=== PATIENT | female | born 1965 | race Caucasian/White ===

== ENCOUNTER → 2017-08-20 | Outpatient (CLI) | payer OTHER ==
--- NOTE | 2017-08-21 15:29 | MAMMOGRAPHY REPORT ---
BILATERAL DIGITAL SCREENING MAMMOGRAM TOMOSYNTHESIS WITH CAD: 08/20/2017 CLINICAL HISTORY: Routine screening. Patient has no complaints. TECHNIQUE: Breast tomosynthesis in addition to standard 2D mammography was performed. Current study was also evaluated with a Computer Aided Detection (CAD) system. COMPARISON: Comparison is made to exams dated: 04/11/2015 mammogram, 01/25/2011 mammogram, 06/24/2009 mammogram - [facility], 04/28/2008, 07/03/2005 mammogram - [facility], and 05/14/2008. BREAST COMPOSITION: The tissue of both breasts is heterogeneously dense, which may obscure small mas ses. FINDINGS: There are possible grouped amorphous microcalcifications in the upper outer middle one thi rd of the left breast, for which additional spot magnification views are recommended. No other suspicious mass, architectural distortion or cluster of microcalcifications is seen bilatera lly. IMPRESSION: ACR BI-RADS CATEGORY 0: INCOMPLETE EVALUATION: NEED ADDITIONAL IMAGING EVALUATION The possible grouping of microcalcifications in the left upper outer breast needs additional evaluati on. The patient will be called to schedule an appointment. Approximately 10% of breast cancers are not detected with mammography. A negative mammographic report should not delay biopsy if a clinically suggestive mass is present. Paulian Benavidez M.D. ay/:08/20/2017 14:53:55 Medical Associate: Eleonora SHELDON(Justina)(Deni), [facility] letter sent: Addl Imaging 0 BI-RADS Code: ACR BI-RADS Category 0: Incomplete Evaluation: Need Additional Imaging Evaluation
== END | disposition home or self-care (01) ==
LOC: C.MAMM 14:01
PROVIDERS: ATTEND Internal Medicine
DX: Z12.31 Encounter for screening mammogram for malignant neoplasm of breast (principal)

== ENCOUNTER → 2017-09-03 | Outpatient (CLI) | payer OTHER ==
--- NOTE | 2017-09-03 14:38 | MAMMOGRAPHY REPORT ---
UNILATERAL LEFT DIGITAL DIAGNOSTIC MAMMOGRAM: 09/03/2017 CLINICAL HISTORY: 51-year-old woman called back from screening mammography for a possible grouping of microcalcifications in the left upper outer quadrant. TECHNIQUE: Spot magnification left CC and ML views were obtained. COMPARISON: Comparison is made to exams dated: 08/20/2017 mammogram, 04/11/2015 mammogram, 01/25/2011 ma mmogram, 06/24/2009 mammogram - [facility], 04/28/2008, and 07/03/2005 mammogram - [facility]. BREAST COMPOSITION: The tissue of the left breast is heterogeneously dense, which may obscure small masses. FINDINGS: There is a 4.2 mm grouping of punctate and amorphous microcalcifications in the upper oute r middle one third of the left breast, approximately 4 cm distal to the nipple. None of the calcific ations demonstrate layering to confirm benign milk of calcium. No definite associated architectural distortion or mass. These calcifications were not definitely identified on prior mammograms and are therefore indeterminate. Definitive characterization with a stereotactic guided biopsy is recommende d. A few other scattered single round microcalcifications are present in the visualized superior lef t breast, without other suspicious grouping or cluster. IMPRESSION: ACR BI-RADS CATEGORY 4: SUSPICIOUS Left breast stereotactic guided biopsy is recommended for a 4.2 mm grouping of punctate and amorphous microcalcifications in the upper outer middle one third of the breast. These results and recommendations were discussed with the patient at the time of the exam. She tenta tively scheduled the left breast stereotactic biopsy prior to leaving our department. Approximately 10% of breast cancers are not detected with mammography. A negative mammographic report should not delay biopsy if a clinically suggestive mass is present. Paulina Benavidez M.D. ay/:09/03/2017 12:49:32 Manager Integrity: Eleonora SHELDON(Justina)(M), [facility] letter sent: Abnormal 4/5 BI-RADS Code: ACR BI-RADS Category 4: Suspicious
== END | disposition home or self-care (01) ==
LOC: C.MAMM 09:37
PROVIDERS: ATTEND Internal Medicine
DX: R92.0 Mammographic microcalcification found on diagnostic imaging of breast (principal)

== ENCOUNTER → 2017-09-05 | Outpatient (CLI) | payer OTHER ==
--- NOTE | 2017-09-05 13:24 | Discharge Instructions ---
Discharge Instructions Procedure Procedure Date: Sep 05, 2017. Reason for visit: Left Microcalcs. Discharge Discharge Date: Sep 05, 2017. Discharge Diagnosis: status post breast biopsy Instructions Activity Recommendations: Additional Limitations (see below) Return to School/Work: no limitations Recommended Home Diet: No Limitations Provider Instructions: ACTIVITY RECOMMENDATIONS: * No lifting, pushing, pulling or exercising the affected side for three days. RETURN TO SCHOOL/WORK: * You may return to work/school after the procedure, but do not perform any strenuous activities for 24 to 48 hours. MEDICATIONS: * Tylenol (two 325 mg) every four to six hours if needed for mild pain (if not allergic to Tylenol). DIET: * Resume previous diet. SPECIAL CARE INSTRUCTIONS: * Keep biopsy site dry for 24 hours. May shower after 24 hours, but do not soak (bathe) incision. * May remove Tegaderm (plastic patch) tomorrow AFTER showering. * Leave the steri-strips on for one week. Allow the steri-strips to fall off by themselves. If not off after one week, you may remove them. You may place a Bandaid crosswise over the strips, if desired. * Apply ice 10 minutes on and 10 minutes off as needed. * Wear a bra at bedtime to sleep more comfortably for 2-3 days. * Your referring physician should have the results after approximately 5 to 7 business days. * Call for unusual bleeding, fever, drainage, etc or if you have any questions call during normal business hours or after hours call Dr Ahn, [phone]. FOLLOW UP VISIT: Follow-up with Referring Physician as scheduled. Allergies Coded Allergies: NO KNOWN DRUG ALLERGIES (Verified Allergy, Unknown, ., 06/01/16) Roberta Cueva Recommendations: Call your doctor if: * Temperature above 101 degrees * Pain not relieved by pain medicine ordered * There is increased drainage or redness from any incision * You have any unanswered questions or concerns. Your Doctors Instructions noted above were prepared by provider Xenia Ahn. Patient Signature Section: Patient Instructions Signature Page Anne Jones Patient (or Guardian) Signature/Date: I have read and understand the instructions given to me by my caregivers. Caregiver/RN/Doctor Signature/Date: The above-named patient and/or guardian has received patient instructions on this date. + Original Patient Signature Page (only) stays with chart. Please make copy for patient.
--- NOTE | 2017-09-06 13:25 | MAMMOGRAPHY REPORT ---
UNILATERAL LEFT DIGITAL DIAGNOSTIC MAMMOGRAM: 09/05/2017 CLINICAL HISTORY: Status post left breast stereotactic biopsy. TECHNIQUE: Postprocedural left CC and ML views were obtained. COMPARISON: Comparison is made to exams dated: 09/05/2017 stereotactic biopsy, 09/03/2017 mammogram, mammogram, 04/11/2015 mammogram, and 01/25/2011 mammogram - [facility]. BREAST COMPOSITION: The tissue of the left breast is heterogeneously dense, which may obscure small masses. FINDINGS: A new biopsy marker clip is seen within the left upper outer quadrant status post stereota ctic biopsy of left breast calcifications. There is mild lateral migration of the biopsy marker clip from the biopsy site by approximately 11 mm. No significant postbiopsy hematoma is seen. IMPRESSION: POST PROCEDURE IMAGING FOR MARKER PLACEMENT New biopsy marker clip status post left breast stereotactic biopsy. Pathology results are pending. Approximately 10% of breast cancers are not detected with mammography. A negative mammographic report should not delay biopsy if a clinically suggestive mass is present. Xenia Ahn M.D. /:09/05/2017 13:39:27 Machining Engineer: Ayesha Wright [facility] BI-RADS Code: Post Procedure Imaging For Marker Placement
--- NOTE | 2017-09-10 07:59 | MAMMOGRAPHY REPORT ---
STEREOTACTIC GUIDED BIOPSY LEFT BREAST: 09/05/2017 CLINICAL HISTORY: Indeterminate calcifications in the left upper outer quadrant. PATIENT CONSENT: The procedure, risks, benefits, and alternatives of stereotactic biopsy with clip pl acement were discussed with the patient, and verbal and written consent was obtained. A timeout was performed immediately prior to the procedure. PROCEDURE DESCRIPTION: With stereotactic guidance, aseptic technique, and lidocaine as a local anesth etic (1% lidocaine to anesthetize the skin and 1% lidocaine with epinephrine to anesthetize the deepe r tissues), the calcifications of concern in the left upper outer quadrant were sampled multiple time s with a 9-gauge vacuum-assisted biopsy needle ([employer] Eviva petite). The path of approach was latera l. Two skin nicks were made during the procedure as the calcifications moved after lidocaine adminis tration and therefore had to be retargeted and a new skin luis had to be made. The specimen radiograp h demonstrates calcifications to be present in the samples. A metallic marker clip was placed at the biopsy site. This was confirmed on postprocedure mammograms. Direct pressure was applied at the bi opsy site and hemostasis was readily achieved. The patient tolerated the procedure without complicat ion. She was given wound care instructions. COMPARISON: Comparison is made to exams dated: 09/03/2017 mammogram, 08/20/2017 mammogram, 04/11/2015 ma mmogram, 01/25/2011 mammogram, 06/24/2009 mammogram - [facility], and 05/14/2008. A stereotactic guided biopsy was performed for the abnormality located in the left breast at 2 o'cloc k posterior depth. The skin was prepped in the usual manner. A biopsy needle was placed adjacent to the abnormality under computer guidance and confirmatory stereotactic mammography images were obtain ed to document needle placement. Once the needle was documented to be in the correct location, a spe cimen was obtained using an automated biopsy gun. The specimen was sent to the laboratory for pathol ogical analysis. IMPRESSION: STEREOTACTIC GUIDED BIOPSY Stereotactic biopsy of the indeterminate calcifications in the left upper outer quadrant, with clip p lacement. The patient will receive pathology results from her referring provider. Xenia Ahn M.D. ah/:09/05/2017 13:27:29 Attending Technologist: Esthela SALMERON)(M), [facility] [employer] Relationship Manager: Ayesha Wright, [facility]
== END | disposition home or self-care (01) ==
LOC: C.MAMM 12:40
PROVIDERS: ATTEND Internal Medicine
DX: R92.0 Mammographic microcalcification found on diagnostic imaging of breast (principal)